=== PATIENT | male | born 1965 | race Caucasian/White ===

== ENCOUNTER 2017-03-23 13:00 | Emergency (ER) | payer MEDICARE ==
[~2017-03-23] VITALS: Ht 185.4 cm; Wt 102.3 kg
[2017-03-23 13:13] VITALS: TEMP 98.8
[2017-03-23 14:36] LABS: BASO % 0.8 % (0.0-2.0); EOS # 0.1 (0.0-0.7); EOS % 0.9 % (0-4.0); GRAN # 3.1 (1.4-6.5); GRAN % 59.3 % (42.2-75.2); HEMATOCRIT 40.3 % (42.0-52.0); HEMOGLOBIN 13.9 g/dl (13.5-18.0); LYMPH # 1.5 (1.2-3.4); LYMPH % 28.2 % (20.0-51.0); MEAN CELL VOLUME 94 fl (80.0-100.0); MEAN CORPUSCULAR HEMOGLOBIN 32 pg (27.0-31.0); MEAN CORPUSCULAR HGB CONC 35 g/dl (33.0-37.0); MEAN PLATELET VOLUME 9.6 fl (7.4-10.4); MONO # 0.5 (0.1-0.6); MONO % 10.2 % (1.7-9.3); PLATELET COUNT 186 K/mm3 (130-400); RED BLOOD COUNT 4.29 M/mm3 (4.20-5.60); REDCELL DISTRIBUTION WIDTH-CV 12.9 % (11.5-14.5); WHITE BLOOD COUNT 5.3 K/mm3 (4.8-10.8)
[2017-03-23 14:43] LABS: ADJUSTED CALCIUM 9.1 mg/dL (8.4-10.2); ALBUMIN 4.1 gm/dL (3.5-5.0); BILIRUBIN,TOTAL 0.5 mg/dL (0.0-1.0); CALCIUM 9.2 mg/dL (8.4-10.2); CREATININE, serum 0.94 mg/dL (0.66-1.25); MAGNESIUM 2.1 mg/dL (1.6-2.3); PHOSPHOROUS 3.2 mg/dL (2.5-4.5); POTASSIUM 4.2 mmol/L (3.4-5.0); TOTAL PROTEIN 7.4 gm/dL (6.4-8.2)
[2017-03-23] MEDS ORDERED: FLEXERIL 1010 MG/TAB PO (16:23)
[2017-03-23] MEDS ORDERED: NORCO 325 MG-51 TAB PO (16:23)
[2017-03-23 16:37] VITALS: BP 157/91; PULSE 74
== END 2017-03-23 16:39 | disposition home or self-care (01) ==
LOC: COL.ER 13:00
PROVIDERS: Emergency Medicine
DX: M54.2 Cervicalgia (principal); R07.89 Other chest pain; Z87.39 Personal history of other diseases of the musculoskeletal system and connective tissue; W17.89XA Other fall from one level to another, initial encounter; Y92.009 Unspecified place in unspecified non-institutional (private) residence as the place of occurrence of the external cause
CPT/HCPCS: J1170; J7030

== ENCOUNTER 2017-05-02 01:28 | Emergency (ER) | payer MEDICARE ==
[~2017-05-02] VITALS: Ht 185.4 cm; Wt 104.5 kg
[~2017-05-02 01:28] MED LIST: FLEXERIL 1010 MG/TAB PO; NORCO 325 MG-51 TAB PO
[2017-05-02 01:31] VITALS: TEMP 97.3
[2017-05-02] MEDS ORDERED: NORCO 325 MG-101 TAB PO (01:37)
[2017-05-02 03:09] VITALS: BP 129/97; PULSE 94
== END 2017-05-02 03:12 | disposition home or self-care (01) ==
LOC: COL.ER 01:28
DX: S16.1XXA Strain of muscle, fascia and tendon at neck level, initial encounter (principal); M54.2 Cervicalgia; G89.29 Other chronic pain; Z98.1 Arthrodesis status; Y04.0XXA Assault by unarmed brawl or fight, initial encounter

== ENCOUNTER 2017-06-24 02:02 | Emergency (ER) | payer MEDICARE ==
[~2017-06-24] VITALS: Ht 185.4 cm; Wt 106.8 kg
[~2017-06-24 02:02] MED LIST changes: +NORCO 325 MG-101 TAB PO
[2017-06-24 02:05] VITALS: TEMP 98.4
[2017-06-24 02:29] LABS: BASO # 0.1 (0.0-0.2); EOS % 0.7 % (0-4.0); GRAN # 3.5 (1.4-6.5); GRAN % 57.3 % (42.2-75.2); HEMATOCRIT 45.2 % (42.0-52.0); HEMOGLOBIN 15.5 g/dl (13.5-18.0); LYMPH # 1.9 (1.2-3.4); LYMPH % 31.1 % (20.0-51.0); MEAN CELL VOLUME 89 fl (80.0-100.0); MEAN CORPUSCULAR HEMOGLOBIN 31 pg (27.0-31.0); MEAN CORPUSCULAR HGB CONC 34 g/dl (33.0-37.0); MEAN PLATELET VOLUME 9.1 fl (7.4-10.4); MONO # 0.6 (0.1-0.6); MONO % 9.2 % (1.7-9.3); PLATELET COUNT 258 K/mm3 (130-400); RED BLOOD COUNT 5.06 M/mm3 (4.20-5.60); WHITE BLOOD COUNT 6.1 K/mm3 (4.8-10.8)
[2017-06-24 02:39] LABS: ACETAMINOPHEN < 10 ug/mL (10-30); ADJUSTED CALCIUM 8.7 mg/dL (8.4-10.2); ALANINE AMINOTRANSFERASE 53 U/L (21-72); ALCOHOL(ethanol),MEDICAL 291 mg/dL; ALKALINE PHOSPHATASE 77 U/L (50-136); ANION GAP 13 mmol/L (7-16); BILIRUBIN,TOTAL 0.6 mg/dL (0.0-1.0); BLOOD UREA NITROGEN 12 mg/dL (9-20); CALCIUM 9.5 mg/dL (8.4-10.2); CARBON DIOXIDE 27 mmol/L (22-30); CHLORIDE 106 mmol/L (98-107); CREATININE, serum 0.89 mg/dL (0.66-1.25); GLUCOSE 116 mg/dL (74-106); MAGNESIUM 2.1 mg/dL (1.6-2.3); PHOSPHOROUS 4.3 mg/dL (2.5-4.5); POTASSIUM 4.1 mmol/L (3.4-5.0); SALICYLATE < 1.0 mg/dL; SODIUM 146 mmol/L (137-145); TOTAL PROTEIN 8.6 gm/dL (6.4-8.2)
[2017-06-24] MEDS ORDERED: ZOLOFT 25MG25 MG PO (03:07)
[2017-06-24 03:31] LABS: AMPHETAMINE URINE NEGATIVE; BARBITURATES URINE NEGATIVE; BENZODIAZEPINES URINE NEGATIVE; BUPRENORPHINE URINE NEGATIVE; METHADONE URINE NEGATIVE; OPIATES URINE NEGATIVE; OXYCODONE URINE NEGATIVE; PHENCYCLIDINE URINE NEGATIVE; PROPOXYPHENE URINE NEGATIVE; THC CANNABINOIDS URINE NEGATIVE; TRICYCLIC ANTIDEPRESS URINE NEGATIVE
[2017-06-24 14:39] VITALS: BP 155/92; PULSE 95
== END 2017-06-24 14:39 | disposition home or self-care (01) ==
LOC: COL.ER 02:02
PROVIDERS: Physician Assistant
DX: F41.9 Anxiety disorder, unspecified (principal); F10.129 Alcohol abuse with intoxication, unspecified; Y90.6 Blood alcohol level of 120-199 mg/100 ml; F32.9 Major depressive disorder, single episode, unspecified; F17.200 Nicotine dependence, unspecified, uncomplicated

== ENCOUNTER 2017-07-13 08:06 | Inpatient (IN) | payer MEDICARE ==
[~2017-07-13] VITALS: Ht 185.4 cm; Wt 105.4 kg
[~2017-07-13 08:06] MED LIST changes: +ZOLOFT 25MG25 MG PO
[2017-07-13 08:44] LABS: BASO # 0.1 (0.0-0.2); BASO % 0.3 % (0.0-2.0); GRAN # 12.1 (1.4-6.5); GRAN % 81.6 % (42.2-75.2); HEMATOCRIT 48.4 % (42.0-52.0); HEMOGLOBIN 17.1 g/dl (13.5-18.0); LYMPH # 1.2 (1.2-3.4); LYMPH % 8.3 % (20.0-51.0); MEAN CELL VOLUME 88 fl (80.0-100.0); MEAN CORPUSCULAR HEMOGLOBIN 31 pg (27.0-31.0); MEAN CORPUSCULAR HGB CONC 35 g/dl (33.0-37.0); MEAN PLATELET VOLUME 9.3 fl (7.4-10.4); MONO # 1.4 (0.1-0.6); MONO % 9.4 % (1.7-9.3); PLATELET COUNT 220 K/mm3 (130-400); REDCELL DISTRIBUTION WIDTH-CV 13.4 % (11.5-14.5)
[2017-07-13 08:51] LABS: INR 1.1 (0.8-3.0); PROTHROMBIN TIME 13.3 SECONDS (9.7-12.8)
[2017-07-13 08:54] LABS: ALANINE AMINOTRANSFERASE 74 U/L (21-72); ALBUMIN 4.8 gm/dL (3.5-5.0); ALCOHOL(ethanol),MEDICAL 28 mg/dL; ALKALINE PHOSPHATASE 82 U/L (50-136); ANION GAP 16 mmol/L (7-16); AST,SGOT 41 U/L (15-37); BILIRUBIN,TOTAL 1.4 mg/dL (0.0-1.0); BLOOD UREA NITROGEN 20 mg/dL (9-20); CALCIUM 9.3 mg/dL (8.4-10.2); CARBON DIOXIDE 20 mmol/L (22-30); CHLORIDE 100 mmol/L (98-107); CREATININE, serum 0.94 mg/dL (0.66-1.25); GLUCOSE 145 mg/dL (74-106); LIPASE 339 U/L (23-300); PARTIAL THROMBOPLASTIN TIME 27.1 SECONDS (26.0-37.0); POTASSIUM 4.1 mmol/L (3.4-5.0); SODIUM 136 mmol/L (137-145); TOTAL PROTEIN 8.4 gm/dL (6.4-8.2)
[2017-07-13 09:03] LABS: C-REACTIVE PROTEIN < 0.5 mg/dL (0.0-0.9)
[2017-07-13 09:04] LABS: TROPONIN-I < 0.012 ng/mL (0.000-0.034)
[2017-07-13 11:27] LABS: STREP SCREEN NEGATIVE
[2017-07-13 11:30] LABS: INFLUENZA A NEGATIVE; INFLUENZA B NEGATIVE
[2017-07-13 14:39] VITALS: BP 147/84; PULSE 83; TEMP 97.8
[2017-07-13 14:46] VITALS: BP 147/84; PULSE 83; TEMP 97.8
[2017-07-13 17:10] LABS: HEMATOCRIT 45.2 % (42.0-52.0); HEMOGLOBIN 15.4 g/dl (13.5-18.0)
[2017-07-13 19:54] VITALS: BP 147/80; PULSE 85; TEMP 98.7
[2017-07-13 22:08] VITALS: BP 163/95; PULSE 88; TEMP 98.6
[2017-07-13 23:46] LABS: COLLECTION METHOD CLEAN CATCH
[2017-07-13 23:52] LABS: MUCOUS Present /lpf; PH 6 (5-8); SQUAMOUS EPITHELIAL 0-2 /hpf; URINE APPEARANCE Clear; URINE BACTERIA None Seen /hpf; URINE BILIRUBIN Negative (NEGATIVE); URINE BLOOD Negative (NEGATIVE); URINE COLOR Yellow; URINE GLUCOSE Negative (NEGATIVE); URINE KETONE Negative (NEGATIVE); URINE LEUKOCYTE ESTERASE Negative (NEGATIVE); URINE NITRATE Negative (NEGATIVE); URINE PROTEIN(semi-quant) Negative (NEGATIVE); URINE RBC 0-2 /hpf; URINE UROBILINOGEN Negative (NEGATIVE); URINE WBC 0-2 /hpf
[2017-07-13 23:58] LABS: TRICYCLIC ANTIDEPRESS URINE NEGATIVE
[2017-07-14] VITALS (12 sets, daily range): BP systolic 125–166; BP diastolic 82–99; PULSE 82–101; TEMP 97.3–98.8
[2017-07-14] MEDS ORDERED: NORCO 325 MG-101 TAB PO ×2 (07:40→07:41)
[2017-07-14 08:44] LABS: BASO % 0.5 % (0.0-2.0); EOS # 0.1 (0.0-0.7); EOS % 0.8 % (0-4.0); GRAN % 60.4 % (42.2-75.2); HEMATOCRIT 38.7 % (42.0-52.0); LYMPH # 1.8 (1.2-3.4); LYMPH % 26.4 % (20.0-51.0); MEAN CELL VOLUME 92 fl (80.0-100.0); MEAN CORPUSCULAR HEMOGLOBIN 32 pg (27.0-31.0); MEAN CORPUSCULAR HGB CONC 34 g/dl (33.0-37.0); MEAN PLATELET VOLUME 9.4 fl (7.4-10.4); MONO # 0.8 (0.1-0.6); MONO % 11.6 % (1.7-9.3); PLATELET COUNT 145 K/mm3 (130-400); RED BLOOD COUNT 4.21 M/mm3 (4.20-5.60); REDCELL DISTRIBUTION WIDTH-CV 13.6 % (11.5-14.5)
[2017-07-14 08:55] LABS: HEMOGLOBIN 13.3 g/dl (13.5-18.0)
[2017-07-15] VITALS: BP 128/83; PULSE 92; TEMP 98.3
[2017-07-15 02:15] VITALS: BP 138/89; PULSE 88; TEMP 98.6
[2017-07-15 04:48] VITALS: BP 135/79; PULSE 84; TEMP 98.6
[2017-07-15 06:48] VITALS: BP 129/84; PULSE 91; TEMP 98.7
[2017-07-15 08:00] VITALS: BP 143/78; PULSE 86; TEMP 98.5
[2017-07-15 10:00] VITALS: BP 157/92; PULSE 75; TEMP 97.8
[2017-07-15] MEDS ORDERED: FOLIC ACID 11 MG/TA1 PO (10:32)
[2017-07-15] MEDS ORDERED: MULTI VITAMINS1 TAB PO (10:32)
[2017-07-15] MEDS ORDERED: THIAMINE 1100 MG/TAB PO (10:32)
[2017-07-15] MEDS ORDERED: PROTONIX 40MG T40 MG PO (10:32)
[2017-07-15] MEDS ORDERED: VALIUM 5MG T5 MG/TAB PO (10:50)
== END 2017-07-15 12:10 | disposition home or self-care (01) | DRG 392 ==
LOC: COL.ER 08:06 → MEDICAL 12:48 → COL.ER 12:48 → MEDICAL 12:48
PROVIDERS: Emergency Medicine; Internal Medicine Gastroenterology; Nurse Practitioner Family; Physician Assistant
PROC: 0DJ08ZZ Inspection of Upper Intestinal Tract, Via Natural or Artificial Opening Endoscopic (ICD-10-PCS; principal; 2017-07-13 15:30)
DX: K29.20 Alcoholic gastritis without bleeding (principal); K92.0 Hematemesis; F10.20 Alcohol dependence, uncomplicated; Y90.1 Blood alcohol level of 20-39 mg/100 ml
CPT/HCPCS: 99232-AI; 99239; C9113; J0360; J1170; J2060; J2250; J2405; J3010; J7030; Q9967

== ENCOUNTER 2017-08-07 13:18 | Inpatient (IN) | payer MEDICARE ==
[~2017-08-07] VITALS: Ht 185.4 cm; Wt 105.8 kg
[~2017-08-07 13:18] MED LIST changes: +FOLIC ACID 11 MG/TA1 PO; +MULTI VITAMINS1 TAB PO; +PROTONIX 40MG T40 MG PO; +THIAMINE 1100 MG/TAB PO; +VALIUM 5MG T5 MG/TAB PO
[2017-08-07 13:49] LABS: BASO % 0.3 % (0.0-2.0); EOS % 0.2 % (0-4.0); GRAN # 6.9 (1.4-6.5); GRAN % 67.3 % (42.2-75.2); HEMATOCRIT 48.2 % (42.0-52.0); HEMOGLOBIN 17.2 g/dl (13.5-18.0); LYMPH # 1.9 (1.2-3.4); LYMPH % 18.5 % (20.0-51.0); MEAN CELL VOLUME 87 fl (80.0-100.0); MEAN CORPUSCULAR HEMOGLOBIN 31 pg (27.0-31.0); MEAN CORPUSCULAR HGB CONC 36 g/dl (33.0-37.0); MEAN PLATELET VOLUME 9.4 fl (7.4-10.4); MONO # 1.4 (0.1-0.6); MONO % 13.5 % (1.7-9.3); PLATELET COUNT 242 K/mm3 (130-400); RED BLOOD COUNT 5.52 M/mm3 (4.20-5.60); REDCELL DISTRIBUTION WIDTH-CV 12.9 % (11.5-14.5)
[2017-08-07 13:58] LABS: ALBUMIN 4.1 gm/dL (3.5-5.0); CALCIUM 9.3 mg/dL (8.4-10.2); CREATININE, serum 0.97 mg/dL (0.66-1.25); POTASSIUM 3.9 mmol/L (3.4-5.0); TOTAL PROTEIN 7.6 gm/dL (6.4-8.2)
[2017-08-07 16:05] VITALS: BP 162/93; PULSE 78; TEMP 98.3
[2017-08-07 16:06] VITALS: BP 162/93; PULSE 78; TEMP 98.3
[2017-08-07 19:50] VITALS: BP 173/98; PULSE 71; TEMP 98
[2017-08-07 21:08] LABS: COLLECTION METHOD CLEAN CATCH
[2017-08-07 21:12] LABS: MUCOUS Present /lpf; PH 6 (5-8); SQUAMOUS EPITHELIAL 0-2 /hpf; URINE APPEARANCE Clear; URINE BACTERIA None Seen /hpf; URINE BILIRUBIN Negative (NEGATIVE); URINE BLOOD Negative (NEGATIVE); URINE COLOR Yellow; URINE GLUCOSE 1+ (NEGATIVE); URINE KETONE Trace (NEGATIVE); URINE LEUKOCYTE ESTERASE Negative (NEGATIVE); URINE NITRATE Negative (NEGATIVE); URINE PROTEIN(semi-quant) Negative (NEGATIVE); URINE RBC 0-2 /hpf; URINE UROBILINOGEN Negative (NEGATIVE); URINE WBC 0-2 /hpf
[2017-08-07 23:56] VITALS: BP 168/102; PULSE 94; TEMP 98.1
[2017-08-08] VITALS (11 sets, daily range): BP systolic 127–161; BP diastolic 80–101; PULSE 98–121; TEMP 97.9–99.4
[2017-08-08 07:32] LABS: BASO % 0.2 % (0.0-2.0); EOS % 0.2 % (0-4.0); GRAN # 6.9 (1.4-6.5); GRAN % 71.1 % (42.2-75.2); LYMPH # 1.8 (1.2-3.4); MEAN CELL VOLUME 88 fl (80.0-100.0); MEAN CORPUSCULAR HEMOGLOBIN 32 pg (27.0-31.0); MEAN CORPUSCULAR HGB CONC 36 g/dl (33.0-37.0); MONO % 10.2 % (1.7-9.3); PLATELET COUNT 187 K/mm3 (130-400); RED BLOOD COUNT 4.75 M/mm3 (4.20-5.60); REDCELL DISTRIBUTION WIDTH-CV 13.2 % (11.5-14.5)
[2017-08-08 08:06] LABS: ALBUMIN 3.5 gm/dL (3.5-5.0); CALCIUM 8.8 mg/dL (8.4-10.2); CREATININE, serum 0.79 mg/dL (0.66-1.25); POTASSIUM 3.8 mmol/L (3.4-5.0); TOTAL PROTEIN 6.9 gm/dL (6.4-8.2)
[2017-08-09] VITALS (11 sets, daily range): BP systolic 135–166; BP diastolic 63–100; PULSE 85–107; TEMP 97.2–99.1
[2017-08-09 06:54] LABS: BASO % 0.5 % (0.0-2.0); EOS # 0.2 (0.0-0.7); EOS % 3.2 % (0-4.0); GRAN # 2.8 (1.4-6.5); GRAN % 48.8 % (42.2-75.2); HEMATOCRIT 37.3 % (42.0-52.0); LYMPH % 35.5 % (20.0-51.0); MEAN CORPUSCULAR HGB CONC 34 g/dl (33.0-37.0); MEAN PLATELET VOLUME 10.5 fl (7.4-10.4); MONO # 0.7 (0.1-0.6); MONO % 11.8 % (1.7-9.3); PLATELET COUNT 118 K/mm3 (130-400); RED BLOOD COUNT 4.03 M/mm3 (4.20-5.60); REDCELL DISTRIBUTION WIDTH-CV 13.5 % (11.5-14.5)
[2017-08-09 07:13] LABS: ALBUMIN 3.1 gm/dL (3.5-5.0); BILIRUBIN,TOTAL 1.1 mg/dL (0.0-1.0); CALCIUM 8.3 mg/dL (8.4-10.2); CREATININE, serum 0.83 mg/dL (0.66-1.25); POTASSIUM 3.9 mmol/L (3.4-5.0); TOTAL PROTEIN 6.3 gm/dL (6.4-8.2)
[2017-08-09 07:14] LABS: HEMOGLOBIN 12.7 g/dl (13.5-18.0); MEAN CELL VOLUME 93 fl (80.0-100.0); MEAN CORPUSCULAR HEMOGLOBIN 32 pg (27.0-31.0)
[2017-08-10] VITALS (11 sets, daily range): BP systolic 134–160; BP diastolic 75–106; PULSE 86–97; TEMP 97.6–99.1
[2017-08-10 06:26] LABS: BASO % 0.9 % (0.0-2.0); EOS # 0.2 (0.0-0.7); EOS % 4.6 % (0-4.0); GRAN % 43.5 % (42.2-75.2); HEMATOCRIT 37.3 % (42.0-52.0); HEMOGLOBIN 12.9 g/dl (13.5-18.0); LYMPH # 1.7 (1.2-3.4); LYMPH % 38.2 % (20.0-51.0); MEAN CELL VOLUME 91 fl (80.0-100.0); MEAN CORPUSCULAR HEMOGLOBIN 32 pg (27.0-31.0); MEAN CORPUSCULAR HGB CONC 35 g/dl (33.0-37.0); MEAN PLATELET VOLUME 10.2 fl (7.4-10.4); MONO # 0.6 (0.1-0.6); MONO % 12.1 % (1.7-9.3); PLATELET COUNT 127 K/mm3 (130-400); REDCELL DISTRIBUTION WIDTH-CV 13.3 % (11.5-14.5)
[2017-08-10 06:41] LABS: ALBUMIN 3.3 gm/dL (3.5-5.0); BILIRUBIN,TOTAL 0.7 mg/dL (0.0-1.0); CALCIUM 8.8 mg/dL (8.4-10.2); CREATININE, serum 0.87 mg/dL (0.66-1.25); POTASSIUM 4.1 mmol/L (3.4-5.0); TOTAL PROTEIN 6.7 gm/dL (6.4-8.2)
[2017-08-11] VITALS: BP 114/72; PULSE 53; TEMP 98.1
[2017-08-11 01:18] VITALS: BP 144/81; PULSE 90; TEMP 98.7
[2017-08-11 04:57] VITALS: BP 128/73; PULSE 88; TEMP 98.9
[2017-08-11 05:47] VITALS: BP 131/75; PULSE 88; TEMP 98.1
[2017-08-11 08:03] VITALS: BP 147/85; PULSE 82; TEMP 97.9
[2017-08-11] MEDS ORDERED: PROTONIX 40MG T40 MG PO (10:24)
[2017-08-11] MEDS ORDERED: FOLIC ACID 11 MG/TA1 PO (10:37)
[2017-08-11] MEDS ORDERED: THIAMINE 1100 MG/TAB PO (10:37)
[2017-08-11] MEDS ORDERED: MULTI VITAMINS1 TAB PO (10:37)
[2017-08-11 11:34] VITALS: BP 133/72; PULSE 86; TEMP 97.4
== END 2017-08-11 15:10 | disposition home or self-care (01) | DRG 439 ==
LOC: COL.ER 13:18 → MEDICAL 15:13
PROVIDERS: Emergency Medicine; Internal Medicine; Physician Assistant
DX: K85.20 Alcohol induced acute pancreatitis without necrosis or infection (principal); F10.239 Alcohol dependence with withdrawal, unspecified; E87.1 Hypo-osmolality and hyponatremia; I10 Essential (primary) hypertension; K29.20 Alcoholic gastritis without bleeding
CPT/HCPCS: 99232-AI; 99239; C9113; J0360; J1170; J2060; J2270; J2405; J2550; J2765; J3010; J3480; J7030; J7120

== ENCOUNTER 2017-09-10 21:24 | Emergency (ER) | payer MEDICARE ==
[~2017-09-10] VITALS: Ht 185.4 cm; Wt 109.1 kg
[2017-09-10 21:34] LABS: BASO # 0.1 (0.0-0.2); BASO % 0.4 % (0.0-2.0); EOS # 0.1 (0.0-0.7); EOS % 0.3 % (0-4.0); GRAN # 12.6 (1.4-6.5); GRAN % 82.2 % (42.2-75.2); HEMATOCRIT 40.4 % (42.0-52.0); HEMOGLOBIN 13.9 g/dl (13.5-18.0); LYMPH # 1.3 (1.2-3.4); LYMPH % 8.2 % (20.0-51.0); MEAN CELL VOLUME 91 fl (80.0-100.0); MEAN CORPUSCULAR HEMOGLOBIN 31 pg (27.0-31.0); MEAN CORPUSCULAR HGB CONC 34 g/dl (33.0-37.0); MEAN PLATELET VOLUME 9.8 fl (7.4-10.4); MONO # 1.3 (0.1-0.6); MONO % 8.4 % (1.7-9.3); PLATELET COUNT 149 K/mm3 (130-400); RED BLOOD COUNT 4.42 M/mm3 (4.20-5.60); REDCELL DISTRIBUTION WIDTH-CV 13.6 % (11.5-14.5)
[2017-09-10 21:43] LABS: ALANINE AMINOTRANSFERASE 35 U/L (21-72); ALBUMIN 4.3 gm/dL (3.5-5.0); ALKALINE PHOSPHATASE 61 U/L (50-136); ANION GAP 10 mmol/L (7-16); AST,SGOT 31 U/L (15-37); BLOOD UREA NITROGEN 19 mg/dL (9-20); CALCIUM 9.1 mg/dL (8.4-10.2); CARBON DIOXIDE 21 mmol/L (22-30); CHLORIDE 107 mmol/L (98-107); CREATININE, serum 1.06 mg/dL (0.66-1.25); GLUCOSE 105 mg/dL (74-106); POTASSIUM 3.4 mmol/L (3.4-5.0); SODIUM 138 mmol/L (137-145); TOTAL PROTEIN 7.6 gm/dL (6.4-8.2)
[2017-09-10 21:46] LABS: ALCOHOL(ethanol),MEDICAL < 10 mg/dL
[2017-09-10 22:32] LABS: TRICYCLIC ANTIDEPRESS URINE NEGATIVE
[2017-09-11 05:58] VITALS: BP 106/79; PULSE 109
== END 2017-09-11 06:00 ==
LOC: COL.ER 21:24
PROVIDERS: Family Medicine
DX: S06.0X9A Concussion with loss of consciousness of unspecified duration, initial encounter (principal); S01.81XA Laceration without foreign body of other part of head, initial encounter; S16.1XXA Strain of muscle, fascia and tendon at neck level, initial encounter; S39.012A Strain of muscle, fascia and tendon of lower back, initial encounter; R45.851 Suicidal ideations; K21.9 Gastro-esophageal reflux disease without esophagitis; Z87.891 Personal history of nicotine dependence; W01.198A Fall on same level from slipping, tripping and stumbling with subsequent striking against other object, initial encounter; Y92.149 Unspecified place in prison as the place of occurrence of the external cause
CPT/HCPCS: J1885; J2405; Q9967

== ENCOUNTER 2017-10-10 12:09 | Emergency (ER) | payer MEDICARE ==
[~2017-10-10] VITALS: Ht 185.4 cm; Wt 111.8 kg
[2017-10-10 12:12] VITALS: TEMP 98.7
[2017-10-10 13:29] LABS: BASO # 0.1 (0.0-0.2); EOS # 0.1 (0.0-0.7); EOS % 2.3 % (0-4.0); GRAN # 2.5 (1.4-6.5); GRAN % 47.2 % (42.2-75.2); HEMATOCRIT 43.7 % (42.0-52.0); HEMOGLOBIN 14.8 g/dl (13.5-18.0); LYMPH # 1.9 (1.2-3.4); LYMPH % 36.1 % (20.0-51.0); MEAN CELL VOLUME 90 fl (80.0-100.0); MEAN CORPUSCULAR HEMOGLOBIN 30 pg (27.0-31.0); MEAN CORPUSCULAR HGB CONC 34 g/dl (33.0-37.0); MEAN PLATELET VOLUME 9.6 fl (7.4-10.4); MONO # 0.7 (0.1-0.6); PLATELET COUNT 237 K/mm3 (130-400); RED BLOOD COUNT 4.88 M/mm3 (4.20-5.60); REDCELL DISTRIBUTION WIDTH-CV 12.6 % (11.5-14.5)
[2017-10-10 13:45] LABS: ALBUMIN 4.3 gm/dL (3.5-5.0); BILIRUBIN,TOTAL 0.3 mg/dL (0.0-1.0); CALCIUM 9.4 mg/dL (8.4-10.2); CREATININE, serum 0.99 mg/dL (0.66-1.25); POTASSIUM 4.4 mmol/L (3.4-5.0); TOTAL PROTEIN 7.9 gm/dL (6.4-8.2)
[2017-10-10] MEDS ORDERED: MEDROL 4MG DOSPA4 MG PO (13:49)
[2017-10-10] MEDS ORDERED: VOLTAREN 75 DR75 MG PO (13:57)
[2017-10-10 14:11] VITALS: BP 132/92; PULSE 62
== END 2017-10-10 14:12 | disposition home or self-care (01) ==
LOC: COL.ER 12:09
PROVIDERS: Family Medicine
DX: M54.12 Radiculopathy, cervical region (principal); F32.9 Major depressive disorder, single episode, unspecified
CPT/HCPCS: Q9967

== ENCOUNTER 2018-01-30 16:38 | Emergency (ER) | payer MEDICARE ==
[~2018-01-30] VITALS: Ht 185.4 cm; Wt 118.2 kg
[~2018-01-30 16:38] MED LIST changes: +MEDROL 4MG DOSPA4 MG PO; +VOLTAREN 75 DR75 MG PO
[2018-01-30 16:48] VITALS: TEMP 97.6
[2018-01-30 17:22] LABS: BASO # 0.1 (0.0-0.2); BASO % 0.7 % (0.0-2.0); EOS # 0.1 (0.0-0.7); EOS % 0.8 % (0-4.0); GRAN # 4.2 (1.4-6.5); GRAN % 50.3 % (42.2-75.2); HEMATOCRIT 44.1 % (42.0-52.0); HEMOGLOBIN 15.6 g/dl (13.5-18.0); LYMPH # 2.9 (1.2-3.4); LYMPH % 34.7 % (20.0-51.0); MEAN CELL VOLUME 85 fl (80.0-100.0); MEAN CORPUSCULAR HEMOGLOBIN 30 pg (27.0-31.0); MEAN CORPUSCULAR HGB CONC 35 g/dl (33.0-37.0); MEAN PLATELET VOLUME 9.1 fl (7.4-10.4); MONO # 1.1 (0.1-0.6); MONO % 13.1 % (1.7-9.3); PLATELET COUNT 219 K/mm3 (130-400); RED BLOOD COUNT 5.18 M/mm3 (4.20-5.60)
[2018-01-30 17:29] LABS: ALBUMIN 4.3 gm/dL (3.5-5.0); BILIRUBIN,TOTAL 0.8 mg/dL (0.0-1.0); CALCIUM 8.8 mg/dL (8.4-10.2); CREATININE, serum 0.91 mg/dL (0.66-1.25); POTASSIUM 4.1 mmol/L (3.4-5.0); TOTAL PROTEIN 7.9 gm/dL (6.4-8.2)
[2018-01-30] MEDS ORDERED: SEROQUEL400 MG PO (17:39)
[2018-01-30] MEDS ORDERED: ZOLOFT 100MG100 MG PO (17:40)
[2018-01-30 21:35] LABS: TRICYCLIC ANTIDEPRESS URINE NEGATIVE
[2018-01-31] MEDS ORDERED: ZOFRAN 4MG T4 MG/TAB PO (02:26)
[2018-01-31] MEDS ORDERED: CATAPRES 0.1MG0.1 MG PO (02:26)
[2018-01-31] MEDS ORDERED: LIBRIUM 25M25 MG/CAP PO (02:26)
[2018-01-31 03:14] VITALS: BP 152/92; PULSE 85
== END 2018-01-31 03:20 | disposition home or self-care (01) ==
LOC: COL.ER 16:38
PROVIDERS: Emergency Medicine
DX: F10.239 Alcohol dependence with withdrawal, unspecified (principal); F10.229 Alcohol dependence with intoxication, unspecified; F43.10 Post-traumatic stress disorder, unspecified; F32.9 Major depressive disorder, single episode, unspecified; F41.9 Anxiety disorder, unspecified; Y90.6 Blood alcohol level of 120-199 mg/100 ml
CPT/HCPCS: J2060; J2765; J3010; J7030

== ENCOUNTER 2018-08-20 18:25 | Emergency (ER) | payer MEDICARE | END 2018-08-23 22:58 | LOC: COL.ER 18:25 | DX: R45.851 Suicidal ideations (principal); F41.9 Anxiety disorder, unspecified ==

== ENCOUNTER 2019-02-21 18:46 | Emergency (ER) | payer MEDICARE ==
[~2019-02-21] VITALS: Ht 190.5 cm; Wt 100.0 kg
[~2019-02-21 18:46] MED LIST changes: +CATAPRES 0.1MG0.1 MG PO; +EFFEXOR 50M50 MG/TAB PO; +HALDOL .5M0.5 MG/TAB PO; +LIBRIUM 25M25 MG/CAP PO; +SEROQUEL400 MG PO; +ZOFRAN 4MG T4 MG/TAB PO; +ZOLOFT 100MG100 MG PO
[2019-02-21 19:10] VITALS: TEMP 98.3
[2019-02-21 20:01] VITALS: BP 155/96; PULSE 99
== END 2019-02-21 20:08 | disposition home or self-care (01) ==
LOC: COL.ER 18:46
DX: S62.307A Unspecified fracture of fifth metacarpal bone, left hand, initial encounter for closed fracture (principal); F32.9 Major depressive disorder, single episode, unspecified; Z88.2 Allergy status to sulfonamides; Y35.813A Legal intervention involving manhandling, suspect injured, initial encounter; Y92.149 Unspecified place in prison as the place of occurrence of the external cause